=== PATIENT | male | born 1940 | race Caucasian/White ===

== ENCOUNTER 2021-08-02 12:55 | Emergency (ER) | payer MEDICARE, SELFPAY ==
--- NOTE | ~2021-08-02 | XR_ITS ---
EXAMINATION: RIGHT ANKLE AND RIGHT TIBIA AND FIBULA CLINICAL INFORMATION: Right leg swelling COMPARISON: None TECHNIQUE: 3 views right ankle and 2 views right tibia and fibula. FINDINGS: Right tibia and fibula: There is no visible fracture or bony abnormality. There is a soft tissue calcification seen adjacent to the mid tibia. Right ankle: There is a old medial malleolar fracture with a small bony fragment. No acute fracture or dislocation seen at this time. The ankle mortise and subtalar joints are normal. There is a retrocalcaneal enthesophyte and soft tissue calcification. XR/XR tibia fibula RT 2V IMPRESSION: No acute fracture or dislocation right ankle or fracture involving the right tibia or fibula. Small retrocalcaneal enthesophyte. The soft tissues are normal.
--- NOTE | ~2021-08-02 | XR_ITS ---
EXAMINATION: RIGHT ANKLE AND RIGHT TIBIA AND FIBULA CLINICAL INFORMATION: Right leg swelling COMPARISON: None TECHNIQUE: 3 views right ankle and 2 views right tibia and fibula. FINDINGS: Right tibia and fibula: There is no visible fracture or bony abnormality. There is a soft tissue calcification seen adjacent to the mid tibia. Right ankle: There is a old medial malleolar fracture with a small bony fragment. No acute fracture or dislocation seen at this time. The ankle mortise and subtalar joints are normal. There is a retrocalcaneal enthesophyte and soft tissue calcification. XR/XR ankle RT 2V IMPRESSION: No acute fracture or dislocation right ankle or fracture involving the right tibia or fibula. Small retrocalcaneal enthesophyte. The soft tissues are normal.
--- NOTE | ~2021-08-02 | US_ITS ---
EXAMINATION: US VENOUS ULTRASOUND WITH DOPPLER LOWER EXTREMITY, RIGHT CLINICAL INFORMATION: Pain and swelling COMPARISON: None TECHNIQUE: Ultrasound of the deep veins is performed from the hip to the calf with compression sonography and color and pulse Doppler assessment. Spectral analysis with color-flow imaging is performed. FINDINGS: There is normal venous compression and respiratory variation and augmented flow. The visualized common femoral vein, superficial femoral vein, profunda femoral vein, popliteal vein, and the trifurcation region shows no evidence of deep venous thrombosis. There is no significant popliteal fossa cyst. If the patient's symptoms persist, followup ultrasound in 5 days 7 days might be of value to exclude proximal propagation from a non-visualized calf vein. US/US venous duplex LE RT IMPRESSION: No DVT demonstrated in the right lower extremity.
[2021-08-02 13:43] VITALS: BP 116/63; PULSE 73; RESP 16; TEMP 37.1; O2SAT 97; BMI 27.8
[2021-08-02 16:22] VITALS: BP 108/67; PULSE 73; RESP 18; TEMP 36.6; O2SAT 95
--- NOTE | 2021-08-02 16:31 | ED_ITS ---
HPI - General Adult General Chief complaint: Extremity Injury, Lower Stated complaint: history of DVT/swollen ankle Time Seen by Provider: 08/02/21 16:21 Source: patient Mode of arrival: ambulatory Limitations: no limitations History of Present Illness HPI narrative: 80 yold male who is border line diabetic right lower extremity DVT presents to the ED for right lower extremity ( leg swelling) without any calf pain/pain. Patient states for the past 3 days he has walking alot and standing and noticed swelling in right leg which would resolved or improved with compression stockings or elevation. patient denies any leg redness, ecchymosis, hotness, coldness, wounds/ulcers on right lower extremity, recent trauma, chest pain, pain on inspiration or shortness of breath. patient came to the ED to be evaluated for PE. patient denies any left lower extremity swelling. Related Data Allergies Allergy/AdvReac Type Severity Reaction Status Date / Time shrimp Allergy Unknown Unknown Verified 08/02/21 16:31 Review of Systems Review of Systems: right lower extremity swelling. Yes all other systems are reviewed and are negative PMFSH Past Medical History Medical History (Updated 08/03/21 @ 00:02 by Luis Brice) DVT (deep venous thrombosis) Surgical History (Updated 08/02/21 @ 13:46 by Gail Florence) Hx of hernia repair Social History Social History Alcohol intake: never Patient Tobacco Use Status: Never used Tobacco Use of substances other than those prescribed or required for medical reasons: No Advance Directives: No Advance Directives Information Provided: No Physical Exam ED Vital Signs: Vital Signs - 24 hr 08/02/21 13:43 08/02/21 16:22 08/02/21 17:56 Temperature 98.8 F 98 F Pulse Rate 73 73 77 Respiratory Rate 16 18 17 Blood Pressure 116/63 108/67 121/57 L Pulse Oximetry 97 95 96 08/02/21 18:00 Temperature 98.6 F Pulse Rate 68 Respiratory Rate 17 Blood Pressure 143/89 H Pulse Oximetry 96 BMI result Body Mass Index 27.8 Const General: cooperative, healthy appearing, comfortable, no acute distress, well developed, alert, awake and Physically active Orientation/consciousness: patient oriented x3 HENMT Head: Yes normal to inspection, Yes No palpable skull fracture present, Yes normocephalic, Yes atraumatic and No abrasion Eyes General: appearance normal, both eyes and all related structures Neck Neck: Yes normal visual inspection, Yes full ROM, Yes no lymphadenopathy, Yes no meningeal signs, Yes trachea midline, Yes supple, No anterior neck swelling and No tender Chest Chest palpation & inspection: normal inspection of the chest and normal palpation of entire chest wall Resp Effort & Inspection: normal respiratory effort and able to speak in complete sentences Auscultation: clear to auscultation bilaterally Cardio Jugular venous distension: no JVD Heart sounds: S1 normal heart sound present and S2 normal heart sound present GI Inspection: Yes normal to inspection and No abdominal wall ecchymosis Palpation (GI): Soft to palpation, not firm, nontender, no guarding and not r igid General: No CVA tenderness and Yes no CVA tenderness Back/Spine/Pelvis Back: no CVA tenderness, No CVA tenderness and No back tenderness Skin General skin exam: no rashes or lesions noted and elasticity normal Neuro General: patient oriented x3, gait normal, no meningeal signs and CN's II-XI int act bilaterally Cranial nerves: Yes CN's II-XII intact bilaterally Extrem Other: Left lower extremity: motor, neuro, and vascular exam is intact. normal. negative for any erythema, ecchymosis, tenderness, swelling, pitting edema, wounds, ulcers, warmth, or coldness. General: Yes normal to inspection and Yes full ROM Upper/lower leg/hip images: 1. Slight swelling. Negative for any erythema, warmth, coldness, wounds, blisters, calf pain, ecchymosis, deformties, or pitting edema. Motor, neuro, and vascular exam is intact. Psych Appearance: grossly normal, well kempt and not disheveled Course Course Course Narrative: Basic labs ordered. Lower extremity ultrasound ordered. Reevaluation(s) Reevaluation #1: WBC is normal. Chemistry and coags normal. Waiting for ultrasound and lower extremity xrays Time: 17:32 Reevaluation #2: Right lower extremity ultrasound came back negative for DVT. Patient is comfortable and without any pain. Ready for x-ray results. Time: 17:54 Reevaluation #3: X-ray of lower extremity came back negative for any fractures or osteomyelitis. Patient is safe for discharge. Diagnosis is venous stasis. Not suspecting CHF. No indication to send BNP due to patient having only right lower extremity having so slight swelling and left lower extremity normal. Negative for any versus distressed indicate CHF exacerbation. Not suspecting PE CHF, compartment syndrome, fracture, or arterial occlusion Time: 18:42 Medical Decision Making MDM Narrative Medical decision making narrative: Leg edema. Venous stasis Lab Data Result diagrams: 08/02/21 16:45 08/02/21 16:45 Labs: Lab Results 08/02/21 08/02/21 08/02/21 Range/Units 16:45 16:45 16:45 WBC 5.8 (4.8-10.8) X10*3/uL RBC 5.07 (4.60-5.80) X10*6/uL Hgb 14.8 (14.0-18.0) g/dl Hct 44.1 (42.0-52.0) % MCV 87.0 (80.0-98.0) fL MCH 29.2 (27.0-33.0) pg MCHC 33.6 (31.0-36.0) g/dl RDW 12.9 (11.0-16.0) % Plt Count 180 (160-400) X10*3/uL MPV 9.5 (9.4-12.4) fL Immature Gran % (Auto) 0.2 (0.0-0.4) % Neut % (Auto) 64.2 (45-73) % Lymph % (Auto) 24.6 (20-40) % [place] % (Auto) 9.3 (2-11) % Eos % (Auto) 1.0 (0-4) % Baso % (Auto) 0.7 (0-2) % Lymph # (Auto) 1.4 (1.2-4.9) X10*3/uL [place] # (Auto) 0.5 (0.1-1.2) X10*3/uL Eos # (Auto) 0.1 (0.0-0.4) X10*3/uL Baso # (Auto) 0.0 (0.0-0.2) X10*3/uL Abs Immat Gran (auto) 0.01 (0.00-0.03) X10*3/uL Absolute Neuts (auto) 3.7 (2.0-8.3) x10*3/uL Absolute Nucleated RBC 0.000 (0.0-0.012) X10*3/uL Nucleated RBC % (auto) 0.0 (0.0-0.2) /100WBC PT 14.2 H (9.9-13.0) SEC INR 1.2 H (0.9-1.1) APTT 33.2 (24.1-38.0) SEC Sodium 140 (135-145) mmol/L Potassium 4.4 (3.3-5.1) mmol/L Chloride 108 (96-108) mmol/L Carbon Dioxide 25 (22-29) mmol/L Anion Gap 11 L (12-20) BUN 21 H (9-16) mg/dL Creatinine 0.88 (0.5-1.4) mg/dL Estim Creat Clear Calc 74.7 Estimated GFR > 60 Random Glucose 107 (60-115) mg/dL Calcium 9.2 (8.4-10.2) mg/dL Total Bilirubin 0.8 (0.0-1.0) mg/dL AST 27 (5-37) U/L ALT 22 (0-40) U/L Alkaline Phosphatase 70 (39-117) U/L Total Protein 6.9 (6.5-8.0) g/dL Albumin 4.1 (3.5-5.0) g/dL Discharge Plan Discharge Clinical Impression: Leg edema, right, Venous stasis Patient Disposition: Home, Self-Care Instructions: Leg Edema (ED), Venous Insufficiency (DC) Additional Instructions: Your ultrasound came back negative for blood clot x-ray came back negative for fracture or bone infection. You're labs are normal. Right leg swelling due to venous stasis/venous blood pooling due to long hours of standing and walking. Continue using compression stockings. Presents to ED for worsening leg swelling, any calf pain, coughing up blood, bilateral leg swelling, chest pain, shortness of breath, redness, lower extremity wounds/ulcers, ecchymosis, coolness, hotness, fever, chills, any other concerning symptoms. Please follow up with primary care provider Interventions: ED Discharge Assessment Last Done: 08/02/21 18:52 Discharge Date/Time: 08/02/21 18:53 Print Language: Kazakh
--- NOTE | 2021-08-02 16:47 | PC.NURSE ---
Pulses palpable bilaterally, temperature of lower extremities appropriate.
[2021-08-02 16:50] LABS: MANUAL DIFF FLAG NO
[2021-08-02 16:51] LABS: Basophils Percent Auto 0.7 % (0-2); Eosinophils Absolute Auto 0.1 X10*3/uL (0.0-0.4); Hematocrit 44.1 % (42.0-52.0); Hemoglobin 14.8 g/dl (14.0-18.0); Imm Gran Abs Auto 0.01 X10*3/uL (0.00-0.03); Imm Gran Pct Auto 0.2 % (0.0-0.4); Lymphocytes Absolute Auto 1.4 X10*3/uL (1.2-4.9); Lymphocytes Percent Auto 24.6 % (20-40); Mean Corpuscular HGB Conc 33.6 g/dl (31.0-36.0); Mean Corpuscular Hemoglobin 29.2 pg (27.0-33.0); Mean Platelet Volume 9.5 fL (9.4-12.4); Monocytes Absolute Auto 0.5 X10*3/uL (0.1-1.2); Monocytes Percent Auto 9.3 % (2-11); Neutrophils Absolute Auto 3.7 x10*3/uL (2.0-8.3); Neutrophils Percent Auto 64.2 % (45-73); Platelet Count 180 X10*3/uL (160-400); Red Blood Count 5.07 X10*6/uL (4.60-5.80); Red Cell Distribution Width 12.9 % (11.0-16.0); White Blood Count 5.8 X10*3/uL (4.8-10.8)
[2021-08-02 16:59] LABS: INTERNATIONAL NORM RATIO 1.2 (0.9-1.1); Prothrombin Time 14.2 SEC (9.9-13.0)
[2021-08-02 17:02] LABS: Partial Thromboplastin Time 33.2 SEC (24.1-38.0)
[2021-08-02 17:06] LABS: Alanine Aminotransferase 22 U/L (0-40); Albumin Level 4.1 g/dL (3.5-5.0); Alkaline Phosphatase 70 U/L (39-117); Aspartate Amino Transferase 27 U/L (5-37); Bilirubin Total 0.8 mg/dL (0.0-1.0); Blood Urea Nitrogen 21 mg/dL (9-16); Calcium 9.2 mg/dL (8.4-10.2); Creatinine Clr Calc Pharmacy 74.7; Estimated Glomerular Filt Rate > 60; Glucose Random 107 mg/dL (60-115); Total Protein 6.9 g/dL (6.5-8.0)
[2021-08-02 17:24] LABS: Anion Gap 11 (12-20); Carbon Dioxide 25 mmol/L (22-29); Chloride 108 mmol/L (96-108); Potassium 4.4 mmol/L (3.3-5.1); Sodium 140 mmol/L (135-145)
[2021-08-02 17:56] VITALS: BP 121/57; PULSE 77; RESP 17; O2SAT 96
[2021-08-02 18:00] VITALS: BP 143/89; PULSE 68; RESP 17; TEMP 37; O2SAT 96
== END 2021-08-02 18:53 | disposition home or self-care (01) ==
PROVIDERS: Physician Assistant; Emergency Provider Emergency Medicine Emergency Medical Services; PCP Internal Medicine
DX: R60.0 Localized edema (principal); I87.8 Other specified disorders of veins; Z86.718 Personal history of other venous thrombosis and embolism
CPT/HCPCS: 36415; 73590; 73600; 80053; 85025; 85610; 85730; 93971; 99284